=== PATIENT | female | born 1985 | race Asian ===

== ENCOUNTER 2021-07-03 06:32 | Inpatient (IN) ==
[2021-07-03] MEDS ORDERED: LACTATED RINGER'S 1,000 ML IV PRN (06:50)
[2021-07-03] MEDS ORDERED: OXYTOCIN 30 UNITS/500 ML BAG IV PRN ×2 (06:50→15:34)
[2021-07-03 07:17] LABS: Hematocrit (blood only) 39.7 % (37-47); Hemoglobin 13.1 g/dL (12.0-16.0); Mean Corpuscular Hemoglobin 30.7 pg (25-34); Mean Platelet Volume 12.3 fL (7.4-10.4); Platelet Count 150 K/uL (130-400); RDW Coefficient of Variation 15.8 % (11.5-14.5); RDW Standard Deviation 53.5 fL (36.4-46.3); Red Blood Count 4.27 M/uL (4.2-5.4)
[2021-07-03] MEDS ORDERED: BUPIVACAINE 0.25% 30 ML VIAL ONE (07:37)
[2021-07-03] MEDS ORDERED: fentaNYL citrate 100 MCG/2 ML VIAL ONE (07:37)
[2021-07-03] MEDS ORDERED: ePHEDrine sulfate 50 MG/ML AMP ONE (07:37)
[2021-07-03] MEDS ORDERED: SODIUM CHLORIDE 0.9% INJ 10 ML VIAL ONE (07:37)
[2021-07-03] MEDS ORDERED: fentaNYL 2MCG/ML ROPIVACAINE 1.25MG/ML 100 ML BAG EPI ONE (07:38)
--- NOTE | 2021-07-03 07:45 | Anesthesiology Consultation ---
Date of Service July 03, 2021 Assessment & Plan (1) Encounter for pre-operative examination: Chart Review Chart Review: Patient NOT seen in Pre Admission Testing and Acceptable Risk for Labor Epidural Consults Requested none History Height/Weight Height: 5 ft Weight: 68.492 kg Medications Active Medications Generic Name Dose Route Start Last Admin Trade Name Freq PRN Reason Stop Dose Admin Lactated Ringer's 1,000 mls @ 125 mls/hr 07/03/21 06:50 07/03/21 07:03 Lr IV 07/05/21 06:49 999 mls/hr .Q8H PRN Administration L&D Protocol Protocol Past Medical History healthy Exercise / Class Metabolic Activity II 4-5 Yardwork/Stairs/Walk up hill Past Surgical History no prior surgeries Past Anesthesia History No Hx of Anesthesia Complications and No Family Hx of Anesthesia Complications History of PONV No Hx of PONV and No Hx of Motion Sickness Social History Smoking Status: Never smoker Hx Alcohol Use: No Hx Substance Use: No substance use type: does not use Physical Exam Vital Signs Last Vital Signs Pulse 98 H 07/03/21 08:00 BP 121/73 07/03/21 06:46 Pulse Ox 97 07/03/21 08:00 Testing Laboratory Results 07/03/21 06:59
[2021-07-03] MEDS ORDERED: NALBUPHINE HCL INJ 10 MG/ML AMP IV PRN (07:48)
[2021-07-03] MEDS ORDERED: NALOXONE HCL 1 MG in SODIUM CHLORIDE 0.9% 1000ML 1,000 ML IV PRN (07:48)
[2021-07-03] MEDS ORDERED: fentaNYL 2MCG/ML ROPIVACAINE 1.25MG/ML 100 ML BAG EPI PRN (07:48)
[2021-07-03] MEDS ORDERED: ONDANSETRON INJ 2 MG/ML 2 ML VIAL IV PRN (07:48)
[2021-07-03] MEDS ORDERED: diphenhydrAMINE 50 MG/ML VIAL IV PRN (07:48)
[2021-07-03] MEDS ORDERED: ePHEDrine sulfate 50 MG/ML AMP IV PRN (07:48)
[2021-07-03] MEDS ORDERED: NALOXONE HCL 0.4 MG/1 ML VIAL/CARP IV PRN (07:48)
--- NOTE | 2021-07-03 07:57 | History & Physical Report ---
Date of Service July 03, 2021 Assessment & Plan (1) : Plan: Admit to L&D for anticipated vaginal delivery Admission and Anticipated Discharge Date Admission Date: July 03, 2021 History of Present Illness Chief Complaint: ongoing active labor Primary Care Provider: NITESH PCP 35 F P1001 at 38.4 weeks admitted in active labor. 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 Physical Exam Constitutional: WD/WN, vitals as above Eyes: PERRL, conjunctivae normal, anicteric sclerae Respiratory: normal respiratory effort, lungs clear to auscultation Cardiovascular: RRR, no murmur, no edema Skin: no rashes, warm and dry Neurologic: patellar DTR's 2+ bilat, sensation intact Psychiatric: A+Ox3, euthymic affect Genitourinary: Manual OB Exam: + cervical dilation 5 cm, + cervical effacement 70%, + station -2 and + amniotic fluid clear OB Exam Monitor Tracing: + external FHT monitor used, + external uterine monitor used, + category I and + normal FHT variability [facility] & [facility]) Vital Signs (Past 12 Hours) Vital Signs Pulse BP Pulse Ox 07/03/21 07:50 99 H 97 07/03/21 06:46 88 121/73 Laboratory Results 07/03/21 07/03/21 06:59 07:00 WBC 9.00 RBC 4.27 Hgb 13.1 Hct 39.7 MCV 93.0 MCH 30.7 MCHC 33.0 RDW Std Deviation 53.5 H RDW Coeff of [place] 15.8 H Plt Count 150 MPV 12.3 H SARS-CoV-2, RNA, NAAT NEGATIVE
--- NOTE | 2021-07-03 14:40 | Delivery Summary ---
Vaginal Delivery Summary Date of Service July 03, 2021 Vaginal Delivery Summary Delivery Note live female KAIA over intact perineum with Delayed cord clamping and Apgars 8/9 weight pending. Cord blood obtained followed by spontaneous delivery of intact placenta. No tears. EBL 100 ml. Final sponge and instrument count are correct. Mom and baby stable.
[2021-07-03] MEDS ORDERED: HYDROCORTISONE ACETATE 25 MG SUPP PR PRN (15:34)
[2021-07-03] MEDS ORDERED: IBUPROFEN 600 MG TAB PO PRN (15:34)
[2021-07-03] MEDS ORDERED: bisacodyL 10 MG SUPP PR PRN (15:34)
[2021-07-03] MEDS ORDERED: ACETAMINOPHEN 325 MG TAB PO PRN (15:34)
[2021-07-03] MEDS ORDERED: BENZOCAINE 20% AER SPR 82.5 GM CAN EXT PRN (15:34)
[2021-07-03] MEDS ORDERED: DIPHTHERIA/TETANUS/PERTUSSIS 0.5 ML SYR/VIAL IM ONE (15:34)
--- NOTE | 2021-07-03 15:44 | Anesthesia Procedure Note ---
Date of Service July 03, 2021 Anesthesia Post Epidural Note Vital Signs Vital Signs: Temp Pulse Resp BP Pulse Ox 37.4 C 86 20 128/66 95 07/03/21 13:47 07/03/21 15:29 07/03/21 13:47 07/03/21 15:29 07/03/21 14:25 Notes Mental Status: alert / awake / arousable and participated in evaluation Patient Amnestic to Procedure: No Nausea / Vomiting: adequately controlled Pain: adequately controlled Airway Patency, RR, SpO2: stable & adequate BP & HR: stable & adequate Hydration State: stable & adequate Neuraxial Anesthesia: was administered and sensory block is resolving Anesthetic Complications: no major complications apparent and Pt Satisfied with anesthetic care Epidural: Removed without complications and With tip intact
[2021-07-03] MEDS ORDERED: DOCUSATE SODIUM 100 MG CAP PO SCH (21:00)
[2021-07-03] MEDS: DOCUSATE SODIUM SYRUP 100 MG/10 ML UDC PO SCH (22:31)
[2021-07-04 07:12] LABS: Hematocrit (blood only) 34.1 % (37-47); Hemoglobin 11.2 g/dL (12.0-16.0); Mean Corpuscular Hemoglobin 30.8 pg (25-34); Mean Corpuscular Hgb Conc 32.8 g/dL (32-36); Mean Corpuscular Volume 93.7 fL (80-100); Mean Platelet Volume 12.3 fL (7.4-10.4); Platelet Count 124 K/uL (130-400); Platelet Estimate Decreased (Normal); Red Blood Count 3.64 M/uL (4.2-5.4); White Blood Count 13.55 K/uL (4.8-10.8)
[2021-07-04] MEDS ORDERED: MEASLES, MUMPS & RUBELLA VIRUS VIAL SQ ONE (07:33)
[2021-07-04] MEDS: DOCUSATE SODIUM SYRUP 100 MG/10 ML UDC PO SCH (07:37)
--- NOTE | 2021-07-04 07:58 | Obstetrical Progress Note ---
Date of Service July 04, 2021 Assessment & Plan Admission and Anticipated Discharge Date Admission Date: July 03, 2021 Subjective Patient is seen and examined. She feels well, no complaints. Desires d/c today Ambulating without dizziness Voiding without difficulty Tolerating regular diet with out N&V Bleeding is minimal No fever/ chills/ CP/ SOB/ N&V/ Leg pain Bottle feeding without problems Vital Signs Temp Pulse Resp BP Pulse Ox 07/04/21 04:45 108/68 07/04/21 03:46 37.1 C 85 14 97/61 L 97 07/03/21 22:55 37 C 96 H 14 121/74 95 Lab Results 07/03/21 07/03/21 07/04/21 Range/Units 06:59 07:00 06:31 WBC 9.00 13.55 H (4.8-10.8) K/uL RBC 4.27 3.64 L (4.2-5.4) M/uL Hgb 13.1 11.2 L (12.0-16.0) g/dL Hct 39.7 34.1 L (37-47) % MCV 93.0 93.7 (80-100) fL MCH 30.7 30.8 (25-34) pg MCHC 33.0 32.8 (32-36) g/dL RDW Std Deviation 53.5 H 55.0 H (36.4-46.3) fL RDW Coeff of [place]rell 15.8 H 16.0 H (11.5-14.5) % Plt Count 150 124 L (130-400) K/uL MPV 12.3 H 12.3 H (7.4-10.4) fL Platelet Estimate Decreased L (Normal) SARS-CoV-2, RNA, NAAT NEGATIVE (NEGATIVE) PE: General: Alert, orientedx3, NAD Abd: soft, NT, fundus firm, below Umbilicus Perineum intact, Lochia rubra minimal Ext; NT, no edema AP: 35 yo s/p , ppd# 1 VSS Afebrile doing well Continue routine care Low platelets Check CMP, LFT All questions were answered D/C home this afternoon Results & Data ([facility]) Vital Signs (Past 12 Hours) Vital Signs Temp Pulse Resp BP Pulse Ox 07/04/21 04:45 108/68 07/04/21 03:46 37.1 C 85 14 97/61 L 97 07/03/21 22:55 37 C 96 H 14 121/74 95
[2021-07-04] MEDS ORDERED: PRENATAL VITAMIN 1 TAB PO SCH (08:00)
[2021-07-04] MEDS ORDERED: FERROUS SULFATE 325 MG TAB PO SCH (08:00)
[2021-07-04 08:44] LABS: Albumin Level 2.6 gm/dl (3.4-5.0); Bilirubin,Total 0.4 mg/dl (0.2-1.0); Creatinine Clr Calc Pharmacy 119.1 ml/min; Est GFR (African American) 140.4 ml/min; Est GFR (Non-African American) 121.1 ml/min; Globulin 2.6 gm/dl (2.5-4.0); Potassium 3.6 mmol/L (3.5-5.1); Total Protein 5.2 gm/dl (6.0-8.3)
[2021-07-04] MEDS ORDERED: NON-FORMULARY MEDICATION (Ferrous Sulfate [Iron (Ferrous Sulfate)] 325 mg (65 mg iron) Tab PO SCH (09:00)
[2021-07-04] MEDS ORDERED: NON-FORMULARY MEDICATION (Prenat.Vits,Cal,Min-Iron-Folic Tablet) PO SCH (09:00)
[2021-07-04] MEDS ORDERED: bisacodyL 5 MG TABEC PO SCH (20:00)
== END 2021-07-04 16:00 | disposition home or self-care (01) | DRG 807 ==
LOC: OPB 06:32 → 4S1 06:40 → EDBD 06:50 → 4S1 06:50 → 4E2 17:49